=== PATIENT | male | born 1960 | race African-American/Black ===

== ENCOUNTER 2022-11-17 08:51 | Emergency (ER) | payer OTHER ==
[2022-11-17 09:07] VITALS: BMI 20.4
[2022-11-17 11:42] LABS: COCAINE, UR NEGATIVE (NEGATIVE); PHENCYCLIDINE,URINE NEGATIVE (NEGATIVE); URINE AMPHETAMINES NEGATIVE (NEGATIVE)
[2022-11-17 11:43] LABS: OPIATES, URI NEGATIVE (NEGATIVE); URINE BARBITURATES NEGATIVE (NEGATIVE)
[2022-11-17 11:48] LABS: PH,URINE 6.5 (5.0-8.0); URINE APPEARANCE CLEAR; URINE BILIRUBIN NEGATIVE (NEGATIVE); URINE COLOR YELLOW; URINE GLUCOSE (UA) NEGATIVE (NEGATIVE); URINE KETONE NEGATIVE (NEGATIVE); URINE LEUK ESTERASE NEGATIVE (NEGATIVE); URINE NITRITE NEGATIVE (NEGATIVE); URINE PROTEIN NEGATIVE (NEGATIVE)
[2022-11-17 11:50] LABS: METHADONE, UR NEGATIVE (NEGATIVE); URINE BENZODIAZEPINES NEGATIVE (NEGATIVE)
[2022-11-17 11:54] LABS: BASO % 0.4 % (0-2.0); EOS % 0.2 % (0-4.5); HEMATOCRIT 38.8 % (35.4-49); HEMOGLOBIN 12.9 GM/dL (11.7-16.9); LYMPH % 12.3 % (8-40); MCH 31.5 pg (25.7-33.7); MCHC 33.4 g/dl (32.0-35.9); MEAN CELL VOLUME 94.4 fl (80-96); MEAN PLT VOLUME 7.4 fl (7.5-11.1); MONO % 3.2 % (3.8-10.2); NEUT % 83.9 % (42.8-82.8); PLATELET COUNT 282 10^3/uL (134-434); RBC 4.11 M/mm3 (4.00-5.60); RDW 16.4 % (11.9-15.9); WHITE BLOOD COUNT 10.6 K/mm3 (4.0-10.0)
[2022-11-17 12:24] LABS: CHLORIDE 112 mmol/L (98-107); POTASSIUM 4.5 mmol/L (3.5-5.1)
[2022-11-17 12:25] LABS: CALCIUM 9.1 mg/dL (8.5-10.1)
[2022-11-17 12:26] LABS: BLOOD UREA NITROGEN 15.1 mg/dL (7-18); GLUCOSE,RANDOM 97 mg/dL (74-106)
[2022-11-17 12:27] LABS: ALBUMIN 4.1 g/dl (3.4-5.0); CO2 26 mmol/L (21-32)
[2022-11-17 12:29] LABS: CREATININE 0.8 mg/dL (0.55-1.3)
[2022-11-17 12:30] LABS: SGOT/AST 45 U/L (15-37); TOT PROT 7.7 g/dl (6.4-8.2)
[2022-11-17 12:31] LABS: SGPT/ALT 36 U/L (13-61)
[2022-11-17 12:32] LABS: BILIRUBIN,TOTAL 0.4 mg/dL (0.2-1)
[2022-11-17 12:33] LABS: ALK PHOS 109 U/L (45-117)
[2022-11-17 12:40] LABS: ANION GAP 9 MMOL/L (8-16); SODIUM 147 mmol/L (136-145)
[2022-11-17 16:58] VITALS: BP 127/77; PULSE 54; RESP 20; TEMP 98.3
== END 2022-11-17 17:31 | disposition home or self-care (01) ==
LOC: JER 08:51
DX: R45.851 Suicidal ideations (principal); R45.850 Homicidal ideations; M54.9 Dorsalgia, unspecified; G89.29 Other chronic pain
CPT/HCPCS: 36415; 80053; 80307; 81003; 84439; 84443; 85025; 87086; 93005; 93010; 99284-25

== ENCOUNTER 2022-12-18 04:19 | Day surgery (SDC) | payer OTHER ==
[2022-12-16 15:14] VITALS: BMI 21.1
[~2022-12-18 04:19] MED LIST: DEXAMETHASONE SOD PHOSPHATE 10 MG/1 ML VIAL IVPUSH ONE; IOHEXOL 180 MG/1 ML ML IJ ONE; LIDOCAINE HCL 1% PRESERVATIVE FREE - 30ML VIAL IJ ONE
[2022-12-18] MEDS ORDERED: DEXAMETHASONE SOD PHOSPHATE 10 MG/1 ML VIAL ONE (07:27)
[2022-12-18] MEDS ORDERED: ACETAMINOPHEN 500 MG TABLET (FP) PO PRN (10:35)
[2022-12-18] MEDS ORDERED: DEXAMETHASONE SOD PHOSPHATE 10 MG/1 ML VIAL IVPUSH ONE (10:55)
[2022-12-18] MEDS ORDERED: IOHEXOL 180 MG/1 ML ML IJ ONE (10:55)
[2022-12-18] MEDS ORDERED: LIDOCAINE 1% P/F 10 MG/ML VIAL INF ONE (10:55)
[2022-12-18 11:36] VITALS: RESP 18
[2022-12-18 14:49] VITALS: BP 145/89; PULSE 56; TEMP 98
== END 2022-12-18 12:10 | disposition home or self-care (01) ==
LOC: JASU-SURG 04:19
PROVIDERS: ATTEND Pain Medicine Pain Medicine
PROC: 3E0R3BZ Introduction of Anesthetic Agent into Spinal Canal, Percutaneous Approach (ICD-10-PCS; 2022-12-18)
PROC: 3E0R33Z Introduction of Anti-inflammatory into Spinal Canal, Percutaneous Approach (ICD-10-PCS; principal; 2022-12-18 11:00)
DX: M54.16 Radiculopathy, lumbar region (principal); M48.061 Spinal stenosis, lumbar region without neurogenic claudication
CPT/HCPCS: 76000-TC-FY; J1100

== ENCOUNTER 2023-01-15 04:50 | Day surgery (SDC) | payer OTHER ==
[2023-01-13 14:51] VITALS: BMI 21.0
[2023-01-15] MEDS ORDERED: DEXAMETHASONE SOD PHOSPHATE 10 MG/1 ML VIAL ONE (07:30)
[2023-01-15] MEDS ORDERED: IOHEXOL 180 MG/1 ML ML IJ ONE (09:31)
[2023-01-15] MEDS ORDERED: DEXAMETHASONE SOD PHOSPHATE 4 MG/1 ML VIAL IVPUSH ONE (09:31)
[2023-01-15] MEDS ORDERED: LIDOCAINE HCL 1% PRESERVATIVE FREE - 30ML VIAL IJ ONE (09:31)
[2023-01-15] MEDS ORDERED: ACETAMINOPHEN 500 MG TABLET (FP) PO PRN (09:54)
[2023-01-15] MEDS ORDERED: ACETAMINOPHEN 500 MG TABLET (FP) ONE (10:05)
[2023-01-15 14:27] VITALS: BP 115/84; PULSE 62; RESP 20; TEMP 98.3
== END 2023-01-15 11:10 | disposition home or self-care (01) ==
LOC: JASU-SURG 04:50
PROVIDERS: ATTEND Pain Medicine Pain Medicine
PROC: 3E0S3BZ Introduction of Anesthetic Agent into Epidural Space, Percutaneous Approach (ICD-10-PCS; 2023-01-15)
PROC: 3E0S33Z Introduction of Anti-inflammatory into Epidural Space, Percutaneous Approach (ICD-10-PCS; principal; 2023-01-15 08:45)
DX: M48.061 Spinal stenosis, lumbar region without neurogenic claudication (principal); M54.16 Radiculopathy, lumbar region
CPT/HCPCS: 76000-TC-FY; J1100